=== PATIENT | female | born 1955 | race American Indian/Alaskan Native ===

== ENCOUNTER 2016-10-02 14:56 | Outpatient (CLI) | payer BC ==
--- NOTE | 2016-10-02 15:58 | Mammography Report ---
Screening mammogram: Routine views demonstrate asymmetry is identified in the left retroareolar as well as in the lateral breast. Single asymmetry is noted in the superior anterior right breast. The remainder the breast pattern is generally fatty replaced and unremarkable. CAD used. Impression: Bilateral breast asymmetries. Recommendation: Prior exams are being requested for comparison. A final report and recommendation will be issued when these are made available. BI-RADS CATEGORY: 0 = Needs additional imaging evaluation ACR BI-RADS MAMMOGRAPHIC CODES: 0 = Needs additional imaging evaluation; 1 = Negative; 2 = Benign; 3 = Probably benign; 4 = Suspicious; 5 = Malignant; 6 = Known biopsy-proven malignancy COMMENT: 1. Dense breast tissue, i.e., adenosis, fibrocystic changes, etc., may obscure an underlying neoplasm. 2. Approximately 10% of cancers are not detected with mammography. 3. A negative mammography report should not delay biopsy if a clinically suspicious mass is present.
== END 2016-10-02 14:57 | disposition home or self-care (01) ==
LOC: SPVWC 14:56
PROVIDERS: ATTEND Physician Assistant Medical
DX: Z12.31 Encounter for screening mammogram for malignant neoplasm of breast (principal)
CPT/HCPCS: 77067; G0202